=== PATIENT | female | born 1995 | race African-American/Black ===

== ENCOUNTER 2016-05-26 13:00 | Emergency (ER) | payer BC ==
[~2016-05-26] VITALS: Ht 160 cm; Wt 78.0 kg
[2016-05-26 13:10] VITALS: Ht 160 cm; Wt 78.0 kg
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
[2016-05-26] MEDS ORDERED: IBUPROFEN 600 MG TAB PO ONE (15:00)
[2016-05-26] MEDS ORDERED: IBUP-1542 PO (15:04)
== END 2016-05-26 15:08 | disposition home or self-care (01) ==
LOC: FTE 13:00
DX: S06.0X0A Concussion without loss of consciousness, initial encounter (principal); S19.9XXA Unspecified injury of neck, initial encounter; V49.50XA Passenger injured in collision with unspecified motor vehicles in traffic accident, initial encounter
CPT/HCPCS: 72040